=== PATIENT | female | born 1995 | race Two or more races ===

== ENCOUNTER 2022-04-20 13:31 | Inpatient (IN) | payer OTHER ==
[~2022-04-20] VITALS: Ht 152.4 cm; Wt 2.7 kg
[2022-04-20] MEDS ORDERED: PRENATAL TABLE1 EAC1 PO (14:32)
== END 2022-04-23 09:55 | disposition home or self-care (01) | DRG 787 ==
LOC: OB/GYN 13:31 → LDR 13:31 → OB/GYN 17:49
PROVIDERS: Specialist; ADMIT Obstetrics & Gynecology; ATTEND Obstetrics & Gynecology
PROC: 4A1HXCZ Monitoring of Products of Conception, Cardiac Rate, External Approach (ICD-10-PCS; 2022-04-20)
PROC: 10D00Z1 Extraction of Products of Conception, Low, Open Approach (ICD-10-PCS; principal; 2022-04-20 17:00)
DX: O36.8330 Maternal care for abnormalities of the fetal heart rate or rhythm, third trimester, not applicable or unspecified (principal); O75.2 Pyrexia during labor, not elsewhere classified; O99.892 Other specified diseases and conditions complicating childbirth; J10.1 Influenza due to other identified influenza virus with other respiratory manifestations; Z3A.39 39 weeks gestation of pregnancy; Z37.0 Single live birth; Z20.822 Contact with and (suspected) exposure to COVID-19

== ENCOUNTER 2022-04-23 13:19 | Outpatient (CLI) | payer OTHER ==
[~2022-04-23 13:19] MED LIST: PRENATAL TABLE1 EAC1 PO
== END 2022-04-23 13:21 | disposition home or self-care (01) ==
LOC: LAB 13:19
PROVIDERS: ATTEND Obstetrics & Gynecology
DX: J06.9 Acute upper respiratory infection, unspecified (principal); Z03.818 Encounter for observation for suspected exposure to other biological agents ruled out

== ENCOUNTER 2022-04-25 14:45 | Outpatient (CLI) | payer OTHER | END 2022-04-25 23:00 | disposition home or self-care (01) | LOC: LAB 14:45 | PROVIDERS: ATTEND Pediatrics Neonatal-Perinatal Medicine | DX: J11.1 Influenza due to unidentified influenza virus with other respiratory manifestations (principal) ==